=== PATIENT | female | born 1985 | race Caucasian/White ===

== ENCOUNTER 2020-03-23 05:25 | Emergency (ER) | payer BC ==
[~2020-03-23] VITALS: Ht 170.2 cm; Wt 72.6 kg
[2020-03-23] MEDS ORDERED: BIRTH CONTROL (05:34)
[2020-03-23 06:44] LABS: ABSOLUTE EOSINOPHILS 0.1 thou/uL (0.0-0.7); ABSOLUTE LYMPHOCYTES 1.9 thou/uL (0.8-5.3); ABSOLUTE MONOCYTES 0.6 thou/uL (0.0-1.2); ABSOLUTE NEUTROPHILS 4.1 thou/uL (1.6-8.1); BASOPHILS 0.4 %; HEMATOCRIT 38.4 % (37.0-47.0); HEMOGLOBIN 12.7 gm/dL (12.0-15.0); MCH 29.7 pg (26.0-34.0); MCHC 33.2 g/dL (28.0-37.0); MCV 89.6 fL (80.0-100.0); MONOCYTES 8.8 %; MPV 8.5 fl. (7.2-11.1); NUCLEATED RBCS 0 /100WBC; PLATELET COUNT* 216 thou/uL (150-400); POLYS 61.8 %; RBC 4.28 mil/uL (4.20-5.00); RDW-CV 12.7 % (10.5-14.5); WBC 6.6 thou/uL (4.0-11.0)
[2020-03-23 06:48] LABS: CALCIUM 8.3 mg/dL (8.5-10.1); CREATININE 0.9 mg/dL (0.6-1.3); POTASSIUM 3.9 mmol/L (3.5-5.1)
[2020-03-23 06:51] LABS: PROTIME 10.7 Seconds (9.20-11.50)
[2020-03-23 06:53] LABS: ALBUMIN 3.1 g/dL (3.4-5.0); TOTAL BILIRUBIN 0.4 mg/dL (<0.1-1.0); TOTAL PROTEIN 7.3 g/dL (6.4-8.2)
[2020-03-23 07:10] LABS: URINE BILIRUBIN NEGATIVE (Negative); URINE BLOOD 1+ (Negative); URINE CLARITY CLEAR; URINE COLOR YELLOW; URINE GLUCOSE-RANDOM NEGATIVE (Negative); URINE KETONES NEGATIVE (Negative); URINE LEUKOCYTES-REFLEX NEGATIVE (Negative); URINE NITRITE-REFLEX NEGATIVE (Negative); URINE PROTEIN NEGATIVE (Negative); URINE UROBILINOGEN 0.2 E.U./dl (0.2-1.0)
[2020-03-23 07:19] LABS: BACTERIA-REFLEX 1-9 Few /HPF (None Seen); CASTS None Seen /LPF (None Seen); MUCUS 4-6 Moderate strn/LPF (None Seen); SQUAMOUS 4-10 Moderate /LPF (0-3); URINE RBC 3-10 Few /HPF (0-2); URINE WBC-REFLEX 0-5 Rare /HPF (0-5)
[2020-03-23 07:20] LABS: CRYSTALS None Seen /LPF (None Seen)
[2020-03-23 08:58] VITALS: BP 132/77
--- NOTE | 2020-03-23 16:12 | EKG ---
[place] [address] ELECTROCARDIOGRAM REPORT Name: IVAN RODRIGUEZ Room: [facility]#: [id number] Admission: 03/23/20 Attend Phys: Discharge: 03/23/20 Date of : 83 Date of Service: 03/23/20529 Report #: [id number] THIS REPORT FOR: //name// [facility] ED Test Date: 2020-03-23 Test Time: 05:30:04 Pat Name: IVAN RODRIGUEZ Department: Room: Gender: Clinical Laboratory Scientist: MARCE : 1985 Requested By: Ana Hand Order Number: [id number] MD: Dominick Beasley Measurements Intervals [place] Rate: 81 P: 72 SC: 152 QRS: 11 QRSD: 83 T: 36 QT: 394 QTc: 458 Interpretive Statements Sinus rhythm Consider left ventricular hypertrophy No previous ECG available for comparison Electronically Signed On 03-23-2020 16:12:08 [employer] by Dominick Beasley [email or web address] <ELECTRONICALLY SIGNED> By: Dominick Beasley MD, [facility] 03/23/20 1612 9 Dominick Beasley MD, FACC /EPI
== END 2020-03-23 08:59 | disposition home or self-care (01) ==
LOC: M.ERS 05:25
PROVIDERS: Personal Emergency Response Attendant
DX: B34.9 Viral infection, unspecified (principal); R07.89 Other chest pain; Z20.828 Contact with and (suspected) exposure to other viral communicable diseases